=== PATIENT | female | born 1995 | race Caucasian/White ===

== ENCOUNTER 2023-04-05 07:17 | Emergency (ER) | payer MEDICAID, SELFPAY ==
[2023-04-05 07:18] VITALS: BP 127/79; PULSE 70; RESP 15; TEMP 36.3; O2SAT 97; BMI 34.8
--- NOTE | 2023-04-05 07:33 | EDS_ITS ---
HPI History of Present Illness Chief Complaint: Substance Abuse Detail of Chief Complaint: Concern for detox from fentanyl Informant: patient and other ([facility] representatives) Onset/Context/Timing Onset: Month(s) (Has been smoking fentanyl for the past 2 years.) Context: Sudden Onset Timing: Continuous Quality: Opiate addiction Location: Not applicable Current Severity: Opiate addiction Maximum Severity: Opiate addiction Worsened by: Nothing specific, per patient life and life . Relieved by: Nothing Associated Symptoms Associated Symptoms: Patient presently has no symptoms of Narrative Narrative: Patient is a 27-year-old female who presents for detox from fentanyl. She has been using for the past 2 months. She was in a detox program 2 years ago. She resumed drug use because of life on life . She presently has no symptoms. She was brought to the emergency department by [facility] representatives. They are affiliated with children's services in [facility]. Prior similar symptoms: Yes Recent Illness/Hospitalization: No PFSH PFSH no medical history Allergy/AdvReac Type Severity Reaction Status Date / Time shellfish derived Allergy Anaphylaxis Verified 04/05/23 07:23 Social History (Updated 04/05/23 @ 07:[address] Agustin Jiménez MD) Smoking Status: Never smoker substance use type: opiates ROS ROS ED Constitutional Constitutional ED: Denies chills, fever(s) or subjective Eyes Eyes: Denies blurry vision or change in vision Cardiovascular Cardiovascular: Denies chest pain or palpitations Respiratory/Chest Respiratory/Chest: Denies cough or dyspnea Gastrointestinal Gastrointestinal: Denies diarrhea, nausea or vomiting Neurologic Neurologic: Denies headache(s) or paresthesias Hematologic/Lymphatic Hematologic/Lymphatic: Reports systems reviewed and no addt'l complaints, except as documented EXAM Physical Exam Const Vital Signs: 04/05/23 07:18 Temperature 97.4 F L Temperature Source Temporal Pulse Rate 70 Respiratory Rate 15 Blood Pressure 127/79 H Blood Pressure Mean 95 Pulse Ox 97 Oxygen Delivery Method Room Air Positive well nourished and well developed General Appearance ED: well developed and NAD; Negative for pallor HEENT Reports moist mucous membranes HEENT Narrative: Atraumatic and normocephalic. Ears are. Eyes PERRL and EOMs intact bilaterally General Eye ED: Negative for pale conjunctiva or scleral icterus Neck no lymphadenopathy, supple and no JVD Resp normal respiratory effort and clear to auscultation bilaterally Cardio regular rate, regular rhythm, S1 normal heart sound, S2 normal heart sound and no murmurs Extremity normal to inspection Neuro oriented x3 and CN's II-XII intact bilaterally Sensorium / Orientation: alert Psych mental status grossly normal Skin no rashes or lesions noted and no wounds General Skin Exam: Negative for jaundice or pallor MDM MDM MDM Narrative Medical decision making narrative: Presents for detox from fentanyl. Present she has no symptoms of withdrawal. She last used at 0400. Supervisors contacted. Apparently we have no beds available at this time. We are presently boarding patients in the emergency department. Patient and sales representative [employer]arel from [facility] children's board were made aware of this. They will attempt other arrangements. Treatment and Re-Evaluation :: Withdrawal from opiates is not life-threatening patient may be discharged to home. In my opinion she is hemodynamically stable and safe for discharge to home. Discharge Plan Triage Chief Complaint: Substance Abuse ED Provider: Agustin Jiménez Dx/Rx/DC Orders Clinical Impression: Opiate addiction Instructions: ED Opiate Abuse Disposition Disposition: Home, Self Care
== END 2023-04-05 08:02 | disposition home or self-care (01) ==
LOC: ED 07:56
PROVIDERS: Emergency Provider Emergency Medicine; Visit Provider Emergency Medicine
DX: F11.20 Opioid dependence, uncomplicated (principal)
CPT/HCPCS: 99282